=== PATIENT | male | born 1955 | race African-American/Black ===

== ENCOUNTER 2018-12-02 10:49 | Emergency (ER) | payer MEDICAID, OTHER ==
[~2018-12-02] VITALS: Ht 175.3 cm; Wt 103.0 kg
[~2018-12-02 10:49] MED LIST: ASPI-518; GLIP10TA10; METF500T
[2018-12-02] MEDS ORDERED: SODIUM CHLORIDE 0.9% 1,000 ML IV ONE (11:00)
[2018-12-02 11:37] LABS: HEMATOCRIT. 40.5 % (42.0-52.0); HEMOGLOBIN. 13.6 g/dL (14.0-18.0); MEAN CORPUSCULAR HEMOGLOBIN 33.5 pg (28.0-32.0); MEAN CORPUSCULAR VOLUME 99.4 fL (80.0-94.0); MEAN PLATELET VOLUME 8.3 fl (7.4-10.4); PLATELET 312 x1000/uL (130-400); RED BLOOD CELL COUNT 4.07 mill/uL (4.7-6.1); RED CELL DISTRIBUTION WIDTH 14.2 % (11.6-14.6)
[2018-12-02 11:43] LABS: CHLORIDE 107 mEq/L (98-107)
[2018-12-02 11:51] LABS: CLARITY URINE CLEAR (CLEAR); COLOR URINE YELLOW (YELLOW); KETONES URINE NEGATIVE (NEGATIVE); LEUKOCYTE ESTERASE URINE NEGATIVE (NEGATIVE); NITRITE URINE NEGATIVE (NEGATIVE); OCCULT BLOOD URINE NEGATIVE (NEGATIVE); PROTEIN URINE NEGATIVE (NEGATIVE); SPECIFIC GRAVITY URINE 1.011 (1.005-1.030); UROBILINOGEN URINE 0.2 E.U./dL (0.2-1.0)
[2018-12-02 12:09] LABS: *AMPHETAMINES SCREEN URINE NEGATIVE (NEGATIVE); *BARBITURATES SCREEN URINE NEGATIVE (NEGATIVE); *BENZODIAZEPINES SCREEN URINE NEGATIVE (NEGATIVE); *COCAINE SCREEN URINE PRESUMTIVE POSITIVE (NEGATIVE)
[2018-12-02 12:10] LABS: CANNABINOID URINE SCREEN NEGATIVE (NEGATIVE); METHADONE URINE SCREEN NEGATIVE (NEGATIVE); OPIATES URINE SCREEN NEGATIVE (NEGATIVE); PHENCYCLIDINE URINE SCREEN NEGATIVE (NEGATIVE)
[2018-12-02 12:40] LABS: PLATELET ESTIMATE NORMAL
[2018-12-02 13:19] VITALS: BP 121/78
== END 2018-12-02 13:25 | disposition home or self-care (01) ==
LOC: ER 11:02
DX: R42 Dizziness and giddiness (principal); R19.7 Diarrhea, unspecified; F10.129 Alcohol abuse with intoxication, unspecified; F14.10 Cocaine abuse, uncomplicated; E11.9 Type 2 diabetes mellitus without complications; I10 Essential (primary) hypertension; F17.200 Nicotine dependence, unspecified, uncomplicated; Z79.82 Long term (current) use of aspirin; Z79.84 Long term (current) use of oral hypoglycemic drugs; Y90.9 Presence of alcohol in blood, level not specified
CPT/HCPCS: 36415; 71045; 80053; 80305; 80320; 81003; 83735; 83880; 84484; 85025; 93005; 96360; 99284; J7030; G0480

== ENCOUNTER 2018-12-14 23:13 | Emergency (ER) | payer MEDICAID ==
[~2018-12-14] VITALS: Ht 182.9 cm; Wt 102.0 kg
[~2018-12-14 23:13] MED LIST changes: -METF500T; +METF500T PO
[2018-12-14] MEDS ORDERED: ASPIRIN 81MG TABLET PO ONE (23:45)
[2018-12-15 00:19] LABS: HEMATOCRIT. 39.5 % (42.0-52.0); HEMOGLOBIN. 13.3 g/dL (14.0-18.0); MEAN CORPUSCULAR HEMOGLOBIN 33.3 pg (28.0-32.0); MEAN CORPUSCULAR VOLUME 98.7 fL (80.0-94.0); MEAN PLATELET VOLUME 8.7 fl (7.4-10.4); PLATELET 300 x1000/uL (130-400); RED CELL DISTRIBUTION WIDTH 14.2 % (11.6-14.6)
[2018-12-15 00:29] LABS: CHLORIDE 107 mEq/L (98-107)
[2018-12-15 00:33] LABS: ETHANOL BLOOD 246 mg/dL
[2018-12-15 03:18] LABS: PLATELET ESTIMATE NORMAL
[2018-12-15 04:00] VITALS: BP 114/61
[2018-12-16] MEDS ORDERED: LISI10TA5 MT (01:03)
[2018-12-17] MEDS ORDERED: METF500T PO (10:23)
[2018-12-17] MEDS ORDERED: LISI10TA5 MT (10:23)
[2018-12-17] MEDS ORDERED: ASPI-1158 PO (10:23)
[2018-12-17] MEDS ORDERED: ATOR10TA PO (10:23)
[2018-12-17] MEDS ORDERED: DILT90TA2 PO (10:23)
== END 2018-12-15 06:12 | disposition left against medical advice (07) ==
LOC: ER 23:13
DX: R07.9 Chest pain, unspecified (principal); E11.9 Type 2 diabetes mellitus without complications; I10 Essential (primary) hypertension; F17.200 Nicotine dependence, unspecified, uncomplicated; Z71.6 Tobacco abuse counseling; Z79.82 Long term (current) use of aspirin
CPT/HCPCS: 36415; 71045; 80053; 80320; 83880; 84484; 85025; 93005; 99284; 99406; Z7610; G0480

== ENCOUNTER 2018-12-19 17:35 | Emergency (ER) | payer MEDICAID ==
[~2018-12-19] VITALS: Ht 172.7 cm; Wt 82.0 kg
[~2018-12-19 17:35] MED LIST changes: +ASPI-1158 PO; -ASPI-518; +ATOR10TA PO; +DILT90TA2 PO; -GLIP10TA10; +LISI10TA5 MT
[2018-12-19] MEDS ORDERED: MORPHINE SULFATE 4 MG/ML CPJ (NOT FOR IM USE) IV STA (17:52)
[2018-12-19] MEDS ORDERED: ONDANSETRON HCL 4MG/2ML INJ IV STA (17:52)
[2018-12-19] MEDS ORDERED: KETOROLAC 30MG/ML VIAL IV STA (17:52)
[2018-12-19] MEDS ORDERED: SODIUM CHLORIDE 0.9% 1,000 ML IV ONE (17:52)
[2018-12-19 18:28] VITALS: BP 127/70
[2018-12-19 18:34] LABS: HEMATOCRIT. 40.4 % (42.0-52.0); HEMOGLOBIN. 13.7 g/dL (14.0-18.0); MEAN CORPUSCULAR HEMOGLOBIN 33.5 pg (28.0-32.0); MEAN CORPUSCULAR VOLUME 98.9 fL (80.0-94.0); MEAN PLATELET VOLUME 8.7 fl (7.4-10.4); PLATELET 372 x1000/uL (130-400); RED BLOOD CELL COUNT 4.08 mill/uL (4.7-6.1)
[2018-12-19 18:36] LABS: CLARITY URINE CLEAR (CLEAR); COLOR URINE YELLOW (YELLOW); KETONES URINE NEGATIVE (NEGATIVE); LEUKOCYTE ESTERASE URINE NEGATIVE (NEGATIVE); NITRITE URINE NEGATIVE (NEGATIVE); OCCULT BLOOD URINE NEGATIVE (NEGATIVE); PH URINE 5.5 (4.5-8.0); PROTEIN URINE NEGATIVE (NEGATIVE); SPECIFIC GRAVITY URINE 1.003 (1.005-1.030); UROBILINOGEN URINE 0.2 E.U./dL (0.2-1.0)
[2018-12-19 18:37] LABS: CHLORIDE 103 mEq/L (98-107)
[2018-12-19 18:38] LABS: INR 0.9; PARTIAL THROMBOPLASTIN TIME 27.1 sec (23.4-31.0); PROTHROMBIN TIME 9.8 sec (9.6-11.0)
[2018-12-19 18:41] LABS: ETHANOL BLOOD 186 mg/dL
[2018-12-19 18:50] LABS: PLATELET ESTIMATE NORMAL
[2018-12-19 19:02] LABS: *AMPHETAMINES SCREEN URINE NEGATIVE (NEGATIVE); *BARBITURATES SCREEN URINE NEGATIVE (NEGATIVE); *BENZODIAZEPINES SCREEN URINE NEGATIVE (NEGATIVE); *COCAINE SCREEN URINE NEGATIVE (NEGATIVE); METHADONE URINE SCREEN NEGATIVE (NEGATIVE); OPIATES URINE SCREEN NEGATIVE (NEGATIVE)
[2018-12-19 19:03] LABS: CANNABINOID URINE SCREEN NEGATIVE (NEGATIVE); PHENCYCLIDINE URINE SCREEN NEGATIVE (NEGATIVE)
[2018-12-19] MEDS ORDERED: MAGNESIUM/ALUMINUM HYDROXIDE/SIMETHICONE 30ML UDC PO ONE (20:15)
[2018-12-19] MEDS ORDERED: FAMOTIDINE 20MG/2ML VIAL IV ONE (20:15)
== END 2018-12-19 20:20 | disposition left against medical advice (07) ==
LOC: ER 17:35
DX: R07.89 Other chest pain (principal); K29.20 Alcoholic gastritis without bleeding; Y90.6 Blood alcohol level of 120-199 mg/100 ml; E11.9 Type 2 diabetes mellitus without complications; I10 Essential (primary) hypertension; Z79.899 Other long term (current) drug therapy
CPT/HCPCS: 36415; 71045; 80053; 80305; 80320; 81003; 83690; 83880; 84484; 85025; 85610; 85730; 93005; 99284; J1885; J2270; J2405; J7030; G0480

== ENCOUNTER 2018-12-20 14:03 | Emergency (ER) | payer MEDICAID ==
[~2018-12-20] VITALS: Ht 172.7 cm; Wt 90.0 kg
[2018-12-20] MEDS ORDERED: IBUPROFEN 600MG TABLET PO STA (15:16)
[2018-12-20 15:39] LABS: HEMATOCRIT. 39.5 % (42.0-52.0); HEMOGLOBIN. 13.5 g/dL (14.0-18.0); MEAN CORPUSCULAR HEMOGLOBIN 33.6 pg (28.0-32.0); MEAN CORPUSCULAR VOLUME 98.5 fL (80.0-94.0); MEAN PLATELET VOLUME 8.5 fl (7.4-10.4); PLATELET 365 x1000/uL (130-400); RED BLOOD CELL COUNT 4.01 mill/uL (4.7-6.1)
[2018-12-20 15:40] LABS: CHLORIDE 104 mEq/L (98-107)
[2018-12-20 15:44] LABS: ETHANOL BLOOD 189 mg/dL
[2018-12-20 16:19] LABS: PLATELET ESTIMATE NORMAL
[2018-12-20 17:00] VITALS: BP 139/78
== END 2018-12-20 17:00 | disposition home or self-care (01) ==
LOC: ER 14:03
DX: R07.9 Chest pain, unspecified (principal); F10.10 Alcohol abuse, uncomplicated; Y90.6 Blood alcohol level of 120-199 mg/100 ml; I11.9 Hypertensive heart disease without heart failure; E11.65 Type 2 diabetes mellitus with hyperglycemia; Z79.82 Long term (current) use of aspirin
CPT/HCPCS: 36415; 71045; 80320; 84484; 93005; 99284; G0480

== ENCOUNTER 2018-12-21 01:05 | Emergency (ER) | payer MEDICAID ==
[~2018-12-21] VITALS: Ht 182.9 cm; Wt 107.0 kg
[2018-12-21 02:06] VITALS: BP 150/75
== END 2018-12-21 02:07 | disposition home or self-care (01) ==
LOC: ER 01:05
DX: I10 Essential (primary) hypertension (principal); E11.9 Type 2 diabetes mellitus without complications; Z79.82 Long term (current) use of aspirin; Z79.899 Other long term (current) drug therapy
CPT/HCPCS: 99283

== ENCOUNTER 2018-12-24 19:31 | Emergency (ER) | payer MEDICAID ==
[~2018-12-24] VITALS: Ht 175.3 cm; Wt 111.0 kg
[2018-12-24 19:36] VITALS: BP 154/88
== END 2018-12-24 23:52 | disposition left against medical advice (07) ==
LOC: ER 19:31
DX: Z53.21 Procedure and treatment not carried out due to patient leaving prior to being seen by health care provider (principal)
CPT/HCPCS: 93005

== ENCOUNTER 2018-12-27 19:15 | Emergency (ER) | payer MEDICAID ==
[~2018-12-27] VITALS: Ht 188 cm; Wt 100.0 kg
[2018-12-27 19:19] VITALS: BP 133/88
== END 2018-12-27 20:50 | disposition left against medical advice (07) ==
LOC: ER 19:15
DX: Z53.21 Procedure and treatment not carried out due to patient leaving prior to being seen by health care provider (principal); R07.9 Chest pain, unspecified; K21.9 Gastro-esophageal reflux disease without esophagitis; E11.9 Type 2 diabetes mellitus without complications; H40.9 Unspecified glaucoma; M79.674 Pain in right toe(s); D63.8 Anemia in other chronic diseases classified elsewhere; R79.89 Other specified abnormal findings of blood chemistry; F10.10 Alcohol abuse, uncomplicated; E66.9 Obesity, unspecified; Z59.0 Homelessness; Z68.32 Body mass index [BMI] 32.0-32.9, adult; Z89.411 Acquired absence of right great toe

== ENCOUNTER 2019-01-24 19:44 | Emergency (ER) | payer MEDICAID ==
[~2019-01-24] VITALS: Ht 182.9 cm; Wt 112.0 kg
[2019-01-24] MEDS ORDERED: ACETAMINOPHEN WITH CODEINE 300/30MG TABLET PO ONE (20:45)
[2019-01-24 20:59] VITALS: BP 148/102
== END 2019-01-24 21:40 | disposition home or self-care (01) ==
LOC: ER 19:44
DX: M79.606 Pain in leg, unspecified (principal); M79.18 Myalgia, other site; E11.9 Type 2 diabetes mellitus without complications; Z89.411 Acquired absence of right great toe; F17.200 Nicotine dependence, unspecified, uncomplicated
CPT/HCPCS: 99282

== ENCOUNTER 2019-01-25 23:05 | Inpatient (IN) | payer MEDICAID ==
[~2019-01-25] VITALS: Ht 182.9 cm; Wt 113.4 kg
[2019-01-26] MEDS ORDERED: KETOROLAC 15MG/ML VIAL IM ONE (00:45)
[2019-01-26] MEDS ORDERED: NITROGLYCERIN 0.4MG TABLET SL SL PRN (01:00)
[2019-01-26] MEDS ORDERED: ASPIRIN 81MG TABLET PO ONE (01:00)
[2019-01-26 01:08] LABS: HEMOGLOBIN. 12.9 g/dL (14.0-18.0); MEAN CORPUSCULAR HEMOGLOBIN 33.7 pg (28.0-32.0); MEAN CORPUSCULAR VOLUME 99.4 fL (80.0-94.0); MEAN PLATELET VOLUME 8.4 fl (7.4-10.4); PLATELET 344 x1000/uL (130-400); RED BLOOD CELL COUNT 3.83 mill/uL (4.7-6.1)
[2019-01-26 01:24] LABS: CHLORIDE 104 mEq/L (98-107); D-DIMER < 0.19 mg/L FEU (<0.50); INR 0.9; PARTIAL THROMBOPLASTIN TIME 24.6 sec (23.4-31.0); PROTHROMBIN TIME 9.7 sec (9.6-11.0)
[2019-01-26 04:34] LABS: ATYPICAL LYMPHOCYTES 2; PLATELET ESTIMATE NORMAL
[2019-01-26 05:29] VITALS: BP 172/101
[2019-01-26] MEDS ORDERED: IPRATROPIUM/ALBUTEROL 0.5-3(2.5)MG/3ML NEB HHN PRN (05:30)
[2019-01-26] MEDS ORDERED: ACETAMINOPHEN 325MG TABLET PO PRN (05:30)
[2019-01-26] MEDS ORDERED: DEXTROSE 50% WATER 50ML SYRINGE IV PRN (05:30)
[2019-01-26] MEDS ORDERED: MAGNESIUM HYDROXIDE 400MG/5ML 30ML UDC PO PRN (05:30)
[2019-01-26] MEDS ORDERED: DIPHENHYDRAMINE 50MG/ML VIAL IV PRN (05:30)
[2019-01-26] MEDS ORDERED: KETOROLAC 30MG/ML VIAL IV PRN (05:30)
[2019-01-26] MEDS ORDERED: CLONIDINE 0.1MG TABLET PO PRN (05:30)
[2019-01-26] MEDS ORDERED: MAGNESIUM/ALUMINUM HYDROXIDE/SIMETHICONE 30ML UDC PO PRN (05:30)
[2019-01-26] MEDS ORDERED: ONDANSETRON HCL 4MG/2ML INJ IV PRN (05:30)
[2019-01-26] MEDS: BLOOD SUGAR DIAGNOSTIC STRIP TEST SCH ×4 (07:40→20:28)
[2019-01-26 08:00] VITALS: BP 180/105
[2019-01-26] MEDS: METFORMIN HCL 500MG TABLET PO SCH ×2 (08:27→18:08)
[2019-01-26] MEDS: FAMOTIDINE 20MG TABLET PO SCH ×2 (08:45→20:33)
[2019-01-26] MEDS: LISINOPRIL 10MG TABLET PO SCH (08:45)
[2019-01-26] MEDS: ASPIRIN 81MG EC TABLET PO SCH (08:45)
[2019-01-26] MEDS: INSULIN LISPRO 100 UNITS/ML SUBCUT SCH ×4 (08:49→20:28)
[2019-01-26 12:00] VITALS: BP 142/74
[2019-01-26 16:00] VITALS: BP 107/74
[2019-01-26] MEDS: SODIUM CHLORIDE 0.9% INJ 3ML FLUSH IVF SCH ×2 (19:05→20:33)
[2019-01-26 20:00] VITALS: BP 159/96
[2019-01-26] MEDS ORDERED: ATORVASTATIN CALCIUM 20MG TABLET PO SCH (21:00)
[2019-01-27] VITALS: BP 137/69
[2019-01-27 04:00] VITALS: BP 137/75
[2019-01-27] MEDS: BLOOD SUGAR DIAGNOSTIC STRIP TEST SCH ×2 (07:40→12:40)
[2019-01-27 08:00] VITALS: BP 147/86
[2019-01-27] MEDS: INSULIN LISPRO 100 UNITS/ML SUBCUT SCH ×2 (08:10→13:31)
[2019-01-27] MEDS: FAMOTIDINE 20MG TABLET PO SCH (08:55)
[2019-01-27] MEDS: LISINOPRIL 10MG TABLET PO SCH (08:55)
[2019-01-27] MEDS: METFORMIN HCL 500MG TABLET PO SCH (08:55)
[2019-01-27] MEDS: ASPIRIN 81MG EC TABLET PO SCH (08:55)
[2019-01-27 12:00] VITALS: BP 131/67
[2019-01-27] MEDS: SODIUM CHLORIDE 0.9% INJ 3ML FLUSH IVF SCH (14:00)
== END 2019-01-27 16:05 | disposition home or self-care (01) | DRG 203 ==
LOC: ER 23:05 → 7WST 01-26 02:00 → ENRESERV 01-26 04:02
PROVIDERS: ADMIT Internal Medicine; ATTEND Internal Medicine
DX: M94.0 Chondrocostal junction syndrome [Tietze] (principal); E11.65 Type 2 diabetes mellitus with hyperglycemia; I11.9 Hypertensive heart disease without heart failure; E78.00 Pure hypercholesterolemia, unspecified; E78.5 Hyperlipidemia, unspecified; F17.210 Nicotine dependence, cigarettes, uncomplicated; J44.9 Chronic obstructive pulmonary disease, unspecified; E66.9 Obesity, unspecified; Z68.33 Body mass index [BMI] 33.0-33.9, adult; Z82.49 Family history of ischemic heart disease and other diseases of the circulatory system; Z83.3 Family history of diabetes mellitus; Z59.0 Homelessness; Z79.899 Other long term (current) drug therapy; Z79.82 Long term (current) use of aspirin; Z89.411 Acquired absence of right great toe
CPT/HCPCS: 36415; 71045; 73590; 80053; 82962; 83880; 84484; 85025; 85379; 93005; 93970; 99285; J1815; J1885

== ENCOUNTER 2019-02-16 20:29 | Emergency (ER) | payer MEDICAID ==
[~2019-02-16] VITALS: Ht 182.9 cm; Wt 111.0 kg
[2019-02-17] MEDS ORDERED: METHYLPREDNISOLONE SOD SUCC 125 MG/2 ML VIAL IV STA (01:22)
[2019-02-17] MEDS ORDERED: IPRATROPIUM/ALBUTEROL 0.5-3(2.5)MG/3ML NEB HHN ONE (01:30)
[2019-02-17] MEDS ORDERED: LEVOFLOXACIN 750MG PREMIX 150 ML IV ONE (01:30)
[2019-02-17 01:34] LABS: BASOPHILS % 1.1 % (0.0-2.0); EOSINOPHILS % 5.3 % (0.0-5.0); HEMATOCRIT. 37.1 % (42.0-52.0); HEMOGLOBIN. 12.5 g/dL (14.0-18.0); LYMPHOCYTES % 26.6 % (20.0-50.0); MEAN CORPUSCULAR HEMOGLOBIN 33.7 pg (28.0-32.0); MEAN CORPUSCULAR VOLUME 99.8 fL (80.0-94.0); MEAN PLATELET VOLUME 8.3 fl (7.4-10.4); MONOCYTES % 10.3 % (2.0-8.0); NEUTROPHILS % 56.7 % (40.0-76.0); PLATELET 329 x1000/uL (130-400); RED BLOOD CELL COUNT 3.72 mill/uL (4.7-6.1); RED CELL DISTRIBUTION WIDTH 13.4 % (11.6-14.6)
[2019-02-17 01:38] LABS: CHLORIDE 103 mEq/L (98-107)
[2019-02-17 01:42] LABS: ETHANOL BLOOD < 10 mg/dL
[2019-02-17 01:46] LABS: D-DIMER 0.39 mg/L FEU (<0.50); INR 0.9; PARTIAL THROMBOPLASTIN TIME 26.5 sec (23.4-31.0); PROTHROMBIN TIME 9.4 sec (9.6-11.0)
[2019-02-17 02:56] LABS: *AMPHETAMINES SCREEN URINE NEGATIVE (NEGATIVE); *BARBITURATES SCREEN URINE NEGATIVE (NEGATIVE); *BENZODIAZEPINES SCREEN URINE NEGATIVE (NEGATIVE)
[2019-02-17 02:57] LABS: *COCAINE SCREEN URINE NEGATIVE (NEGATIVE); CANNABINOID URINE SCREEN NEGATIVE (NEGATIVE); OPIATES URINE SCREEN NEGATIVE (NEGATIVE); PHENCYCLIDINE URINE SCREEN NEGATIVE (NEGATIVE)
[2019-02-17 03:00] LABS: METHADONE URINE SCREEN NEGATIVE (NEGATIVE)
[2019-02-17 05:00] VITALS: BP 160/70
== END 2019-02-17 06:29 | disposition home or self-care (01) ==
LOC: ER 20:29 → CANBEDREQ 02-17 07:44
DX: J40 Bronchitis, not specified as acute or chronic (principal); I10 Essential (primary) hypertension; E78.00 Pure hypercholesterolemia, unspecified; E11.9 Type 2 diabetes mellitus without complications; Z98.890 Other specified postprocedural states; F17.290 Nicotine dependence, other tobacco product, uncomplicated
CPT/HCPCS: 36415; 71045; 80053; 80305; 80320; 83690; 83880; 84484; 85025; 85379; 85610; 85730; 87040; 87086; 93970; 94640; 96365; 96366; 96375; 99284; J1956; J2930; J7620; Z7610; G0480

== ENCOUNTER 2019-02-22 16:16 | Emergency (ER) | payer MEDICAID ==
[~2019-02-22] VITALS: Ht 182.9 cm; Wt 111.0 kg
[2019-02-22] MEDS ORDERED: ACETAMINOPHEN 325MG TABLET PO ONE (20:15)
[2019-02-23 05:31] VITALS: BP 120/70
== END 2019-02-23 05:33 | disposition home or self-care (01) ==
LOC: ER 16:16
DX: M79.604 Pain in right leg (principal); Z59.0 Homelessness; E11.9 Type 2 diabetes mellitus without complications; E78.00 Pure hypercholesterolemia, unspecified; I10 Essential (primary) hypertension; Z89.9 Acquired absence of limb, unspecified; Z79.82 Long term (current) use of aspirin
CPT/HCPCS: 93971; 99284

== ENCOUNTER 2019-03-03 16:44 | Emergency (ER) | payer MEDICAID ==
[~2019-03-03] VITALS: Ht 185.4 cm; Wt 110.0 kg
[2019-03-03] MEDS ORDERED: NAPROXEN 250MG TABLET PO ONE (21:45)
[2019-03-03 22:02] LABS: BASOPHILS % 1.7 % (0.0-2.0); HEMATOCRIT. 37.5 % (42.0-52.0); HEMOGLOBIN. 12.7 g/dL (14.0-18.0); LYMPHOCYTES % 24.9 % (20.0-50.0); MEAN CORPUSCULAR HEMOGLOBIN 33.8 pg (28.0-32.0); MEAN PLATELET VOLUME 8.4 fl (7.4-10.4); MONOCYTES % 9.1 % (2.0-8.0); NEUTROPHILS % 61.3 % (40.0-76.0); PLATELET 288 x1000/uL (130-400); RED BLOOD CELL COUNT 3.75 mill/uL (4.7-6.1); RED CELL DISTRIBUTION WIDTH 13.3 % (11.6-14.6)
[2019-03-03 22:10] LABS: CHLORIDE 103 mEq/L (98-107)
[2019-03-03 22:56] LABS: CLARITY URINE CLEAR (CLEAR); COLOR URINE YELLOW (YELLOW); KETONES URINE NEGATIVE (NEGATIVE); LEUKOCYTE ESTERASE URINE NEGATIVE (NEGATIVE); NITRITE URINE NEGATIVE (NEGATIVE); OCCULT BLOOD URINE NEGATIVE (NEGATIVE); PROTEIN URINE NEGATIVE (NEGATIVE); SPECIFIC GRAVITY URINE 1.021 (1.005-1.030); UROBILINOGEN URINE 0.2 E.U./dL (0.2-1.0)
[2019-03-04 06:00] VITALS: BP 132/71
== END 2019-03-04 07:38 | disposition home or self-care (01) ==
LOC: ER 16:44
DX: R07.81 Pleurodynia (principal); E11.9 Type 2 diabetes mellitus without complications; E78.00 Pure hypercholesterolemia, unspecified; I10 Essential (primary) hypertension; F17.200 Nicotine dependence, unspecified, uncomplicated; Z89.9 Acquired absence of limb, unspecified; Z79.82 Long term (current) use of aspirin
CPT/HCPCS: 36415; 71045; 80053; 81003; 85025; 99284

== ENCOUNTER 2019-03-05 20:22 | Emergency (ER) | payer MEDICAID ==
[~2019-03-05] VITALS: Ht 175.3 cm; Wt 84.0 kg
[2019-03-06 00:40] VITALS: BP 129/78
== END 2019-03-06 06:00 | disposition left against medical advice (07) ==
LOC: ER 20:22
DX: G89.29 Other chronic pain (principal); Z59.0 Homelessness; E78.00 Pure hypercholesterolemia, unspecified; E11.9 Type 2 diabetes mellitus without complications; I10 Essential (primary) hypertension; F17.200 Nicotine dependence, unspecified, uncomplicated; Z89.9 Acquired absence of limb, unspecified; Z79.82 Long term (current) use of aspirin
CPT/HCPCS: 73610; 99283

== ENCOUNTER 2019-03-06 16:04 | Emergency (ER) | payer MEDICAID ==
[~2019-03-06] VITALS: Ht 182.9 cm; Wt 103.0 kg
[2019-03-07 05:37] VITALS: BP 106/72
== END 2019-03-07 05:13 | disposition home or self-care (01) ==
LOC: ER 16:04
DX: M79.661 Pain in right lower leg (principal); E11.9 Type 2 diabetes mellitus without complications; E78.00 Pure hypercholesterolemia, unspecified; I10 Essential (primary) hypertension; J40 Bronchitis, not specified as acute or chronic; Z79.82 Long term (current) use of aspirin; Z89.431 Acquired absence of right foot
CPT/HCPCS: 99281

== ENCOUNTER 2019-03-07 18:10 | Emergency (ER) | payer MEDICAID ==
[~2019-03-07] VITALS: Ht 182.9 cm; Wt 109.0 kg
[2019-03-07 18:32] VITALS: BP 122/59
[2019-03-07] MEDS ORDERED: IBUPROFEN 800MG TABLET PO ONE (20:00)
== END 2019-03-07 21:37 | disposition home or self-care (01) ==
LOC: ER 18:10
DX: M54.9 Dorsalgia, unspecified (principal); E78.00 Pure hypercholesterolemia, unspecified; E11.9 Type 2 diabetes mellitus without complications; I10 Essential (primary) hypertension; W01.0XXA Fall on same level from slipping, tripping and stumbling without subsequent striking against object, initial encounter; Y93.9 Activity, unspecified; Y92.9 Unspecified place or not applicable; Z79.82 Long term (current) use of aspirin; Z90.49 Acquired absence of other specified parts of digestive tract; Z89.431 Acquired absence of right foot
CPT/HCPCS: 99282

== ENCOUNTER 2019-03-14 16:15 | Emergency (ER) | payer MEDICAID ==
[~2019-03-14] VITALS: Ht 167.6 cm; Wt 108.0 kg
[2019-03-14] MEDS ORDERED: HYDROCODONE/ACETAMINOPHEN 5/325MG TABLET PO ONE (18:00)
[2019-03-14 18:55] VITALS: BP 128/81
== END 2019-03-14 18:56 | disposition home or self-care (01) ==
LOC: ER 17:30
DX: M54.9 Dorsalgia, unspecified (principal); G89.29 Other chronic pain; E11.9 Type 2 diabetes mellitus without complications; E78.00 Pure hypercholesterolemia, unspecified; I10 Essential (primary) hypertension; Z79.82 Long term (current) use of aspirin; Z89.411 Acquired absence of right great toe
CPT/HCPCS: 99282

== ENCOUNTER 2019-03-17 15:41 | Emergency (ER) | payer MEDICAID ==
[~2019-03-17] VITALS: Ht 175.3 cm; Wt 91.0 kg
[2019-03-17] MEDS ORDERED: ACETAMINOPHEN 325MG TABLET PO ONE (17:15)
[2019-03-18 06:50] VITALS: BP 140/79
== END 2019-03-18 06:50 | disposition home or self-care (01) ==
LOC: ER 15:41
DX: M79.661 Pain in right lower leg (principal); G89.29 Other chronic pain; J42 Unspecified chronic bronchitis; Z76.0 Encounter for issue of repeat prescription; I10 Essential (primary) hypertension; E11.9 Type 2 diabetes mellitus without complications; E78.00 Pure hypercholesterolemia, unspecified
CPT/HCPCS: 99283

== ENCOUNTER 2019-03-19 14:09 | Emergency (ER) | payer MEDICAID ==
[~2019-03-19] VITALS: Ht 182.9 cm; Wt 91.0 kg
[2019-03-19 17:02] LABS: BASOPHILS % 0.5 % (0.0-2.0); CHLORIDE 102 mEq/L (98-107); EOSINOPHILS % 5.1 % (0.0-5.0); HEMOGLOBIN. 13.3 g/dL (14.0-18.0); LYMPHOCYTES % 32.9 % (20.0-50.0); MEAN CORPUSCULAR HEMOGLOBIN 33.4 pg (28.0-32.0); MEAN CORPUSCULAR VOLUME 100.4 fL (80.0-94.0); MEAN PLATELET VOLUME 8.4 fl (7.4-10.4); MONOCYTES % 9.3 % (2.0-8.0); NEUTROPHILS % 52.2 % (40.0-76.0); PLATELET 319 x1000/uL (130-400); RED BLOOD CELL COUNT 3.98 mill/uL (4.7-6.1); RED CELL DISTRIBUTION WIDTH 12.8 % (11.6-14.6)
[2019-03-19 17:07] LABS: ETHANOL BLOOD 151 mg/dL
[2019-03-19 17:26] LABS: CLARITY URINE CLEAR (CLEAR); COLOR URINE YELLOW (YELLOW); KETONES URINE TRACE (NEGATIVE); LEUKOCYTE ESTERASE URINE NEGATIVE (NEGATIVE); NITRITE URINE NEGATIVE (NEGATIVE); OCCULT BLOOD URINE NEGATIVE (NEGATIVE); PROTEIN URINE NEGATIVE (NEGATIVE); UROBILINOGEN URINE 0.2 E.U./dL (0.2-1.0)
[2019-03-19 17:39] LABS: *BARBITURATES SCREEN URINE NEGATIVE (NEGATIVE)
[2019-03-19 17:40] LABS: *AMPHETAMINES SCREEN URINE NEGATIVE (NEGATIVE); *BENZODIAZEPINES SCREEN URINE NEGATIVE (NEGATIVE); *COCAINE SCREEN URINE NEGATIVE (NEGATIVE); CANNABINOID URINE SCREEN NEGATIVE (NEGATIVE); METHADONE URINE SCREEN NEGATIVE (NEGATIVE); OPIATES URINE SCREEN NEGATIVE (NEGATIVE); PHENCYCLIDINE URINE SCREEN NEGATIVE (NEGATIVE)
[2019-03-19] MEDS ORDERED: IBUPROFEN 600MG TABLET PO ONE (21:00)
[2019-03-20 06:00] VITALS: BP 155/116
== END 2019-03-20 09:45 | disposition home or self-care (01) ==
LOC: ER 14:09
DX: R07.9 Chest pain, unspecified (principal); F10.129 Alcohol abuse with intoxication, unspecified; E11.9 Type 2 diabetes mellitus without complications; Y90.2 Blood alcohol level of 40-59 mg/100 ml; Z59.0 Homelessness; Z79.82 Long term (current) use of aspirin
CPT/HCPCS: 36415; 71045; 80053; 80305; 80320; 81003; 84484; 85025; 93005; 99285; G0480

== ENCOUNTER 2019-04-10 21:39 | Emergency (ER) | payer MEDICAID ==
[~2019-04-10] VITALS: Ht 172.7 cm; Wt 100.0 kg
[2019-04-11] MEDS ORDERED: ACETAMINOPHEN 325MG TABLET PO ONE (03:45)
[2019-04-11] MEDS ORDERED: KETOROLAC 15MG/ML VIAL IM ONE (05:00)
[2019-04-11 07:30] VITALS: BP 150/120
== END 2019-04-11 09:32 | disposition home or self-care (01) ==
LOC: ER 21:39
DX: G89.29 Other chronic pain (principal); Z59.0 Homelessness; E11.9 Type 2 diabetes mellitus without complications; I10 Essential (primary) hypertension; Z79.82 Long term (current) use of aspirin
CPT/HCPCS: 99283

== ENCOUNTER 2020-05-03 11:44 | Emergency (ER) | payer MEDICAID ==
[~2020-05-03] VITALS: Ht 182.9 cm; Wt 109.0 kg
[~2020-05-03 11:44] MED LIST changes: -ASPI-1158 PO; +ASPI-1406 PO; +LISI10TA26 MT; -LISI10TA5 MT
[2020-05-03] MEDS ORDERED: IBUPROFEN 600MG TABLET PO STA (12:03)
[2020-05-03 12:09] VITALS: BP 102/60
[2020-05-03] MEDS ORDERED: SODIUM CHLORIDE 0.9% 1,000 ML IV ONE (12:15)
[2020-05-03] MEDS ORDERED: METF-414 MT (17:36)
[2020-05-03] MEDS ORDERED: ALBU6.7H9 INH (17:36)
[2020-05-04 11:53] LABS: *AMPHETAMINES SCREEN URINE NEGATIVE (NEGATIVE); CANNABINOID URINE SCREEN NEGATIVE (NEGATIVE)
[2020-05-04 11:55] LABS: *BARBITURATES SCREEN URINE NEGATIVE (NEGATIVE); *BENZODIAZEPINES SCREEN URINE NEGATIVE (NEGATIVE)
[2020-05-04 11:57] LABS: *COCAINE SCREEN URINE NEGATIVE (NEGATIVE); METHADONE URINE SCREEN NEGATIVE (NEGATIVE); PHENCYCLIDINE URINE SCREEN NEGATIVE (NEGATIVE)
[2020-05-04 11:59] LABS: OPIATES URINE SCREEN NEGATIVE (NEGATIVE)
== END 2020-05-03 12:48 | disposition left against medical advice (07) ==
LOC: ER 12:26
DX: R07.89 Other chest pain (principal); F10.10 Alcohol abuse, uncomplicated; R00.0 Tachycardia, unspecified; E11.9 Type 2 diabetes mellitus without complications; I10 Essential (primary) hypertension; R53.1 Weakness; R42 Dizziness and giddiness; Z79.899 Other long term (current) drug therapy; Y90.9 Presence of alcohol in blood, level not specified
CPT/HCPCS: 71045; 80305; 93005; 99285; J7030

== ENCOUNTER 2020-05-03 14:29 | Emergency (ER) | payer MEDICAID ==
[~2020-05-03] VITALS: Ht 172.7 cm; Wt 90.0 kg
[2020-05-03] MEDS ORDERED: SODIUM CHLORIDE 0.9% 1,000 ML IV ONE (15:00)
[2020-05-03] MEDS ORDERED: INSULIN REGULAR (HUMULIN R) 300UNITS/3ML VIAL IV ONE (15:00)
[2020-05-03 15:16] LABS: BASOPHILS % 0.9 % (0.0-2.0); EOSINOPHILS % 6.4 % (0.0-5.0); HEMOGLOBIN. 13.2 g/dL (14.0-18.0); MEAN CORPUSCULAR HEMOGLOBIN 32.2 pg (28.0-32.0); MEAN PLATELET VOLUME 8.8 fl (7.4-10.4); MONOCYTES % 9.3 % (2.0-8.0); NEUTROPHILS % 61.4 % (40.0-76.0); PLATELET 375 x1000/uL (130-400); RED BLOOD CELL COUNT 4.08 mill/uL (4.7-6.1); RED CELL DISTRIBUTION WIDTH 14.1 % (11.6-14.6)
[2020-05-03 15:21] LABS: BG BASE EXCESS -0.3 mmol/L (-2.0-2.0); BG CARBOXYHEMOGLOBIN 4.4 % (0.5-1.5); BG DEOXYHEMOGLOBIN 3.1 % (0.0-5.0); BG FRACTION INSPIRED OXYGEN 21; BG METHEMOGLOBIN 0.3 % (0.0-1.5); BG OXYGEN SATURATION 96.7 % (92.0-98.5); BG OXYHEMOGLOBIN 92.2 % (94.0-97.0); BG PCO2 43.3 mmHg (35.0-45.0); BG PH 7.379 (7.350-7.450); BG SAMPLE SITE RIGHT BRACHIAL; BG TOTAL HEMOGLOBIN 13.6 g/dL (12.0-18.0); BG VENT MODE ROOM AIR
[2020-05-03 15:22] LABS: CHLORIDE 100 mEq/L (98-107)
[2020-05-03 15:26] LABS: CLARITY URINE CLEAR (CLEAR); COLOR URINE YELLOW (YELLOW); KETONES URINE TRACE (NEGATIVE); LEUKOCYTE ESTERASE URINE NEGATIVE (NEGATIVE); NITRITE URINE NEGATIVE (NEGATIVE); OCCULT BLOOD URINE NEGATIVE (NEGATIVE); PROTEIN URINE NEGATIVE (NEGATIVE); SPECIFIC GRAVITY URINE 1.012 (1.005-1.030); UROBILINOGEN URINE 0.2 E.U./dL (0.2-1.0)
[2020-05-03 15:30] LABS: BETA HYDROXYBUTYRATE 0.1 mMol/L (0.0-0.3)
[2020-05-03 16:45] VITALS: BP 100/56
[2020-05-03] MEDS ORDERED: METF-414 MT (17:36)
[2020-05-03] MEDS ORDERED: ALBU6.7H9 INH (17:36)
== END 2020-05-03 18:22 | disposition home or self-care (01) ==
LOC: ER 14:29
DX: E11.65 Type 2 diabetes mellitus with hyperglycemia (principal); R06.02 Shortness of breath; I10 Essential (primary) hypertension; F17.210 Nicotine dependence, cigarettes, uncomplicated; Z91.19 Patient's noncompliance with other medical treatment and regimen; Z79.899 Other long term (current) drug therapy; Z53.29 Procedure and treatment not carried out because of patient's decision for other reasons; Z59.0 Homelessness
CPT/HCPCS: 36415; 36600; 80048; 81003; 82010; 82375; 82805; 85025; 96361; 96374; 99283; J1815; Z7610

== ENCOUNTER 2020-05-06 11:36 | Emergency (ER) | payer MEDICAID ==
[~2020-05-06] VITALS: Ht 182.9 cm; Wt 99.0 kg
[~2020-05-06 11:36] MED LIST changes: +ALBU6.7H9 INH; +METF-414 MT
[2020-05-06 11:59] VITALS: BP 114/86
[2020-05-06] MEDS ORDERED: IPRATROPIUM BROMIDE (0.02%) 0.5MG/2.5ML NEB HHN STA (12:27)
[2020-05-06] MEDS ORDERED: AZITHROMYCIN 500 MG TABLET PO STA (12:27)
[2020-05-06] MEDS ORDERED: METHYLPREDNISOLONE SOD SUCC 125 MG/2 ML VIAL IV STA (12:27)
[2020-05-06] MEDS ORDERED: ALBUTEROL (0.083%) 2.5MG/3ML NEB HHN STA (12:27)
[2020-05-06] MEDS ORDERED: MAGNESIUM 2 G PREMIX 50 ML IV STA (12:27)
[2020-05-06 12:31] LABS: BASOPHILS % 1.8 % (0.0-2.0); EOSINOPHILS % 6.6 % (0.0-5.0); HEMATOCRIT. 40.7 % (42.0-52.0); HEMOGLOBIN. 13.8 g/dL (14.0-18.0); LYMPHOCYTES % 27.4 % (20.0-50.0); MEAN CORPUSCULAR HEMOGLOBIN 33.3 pg (28.0-32.0); MEAN CORPUSCULAR VOLUME 97.9 fL (80.0-94.0); MEAN PLATELET VOLUME 8.5 fl (7.4-10.4); MONOCYTES % 12.4 % (2.0-8.0); NEUTROPHILS % 51.8 % (40.0-76.0); PLATELET 364 x1000/uL (130-400); RED BLOOD CELL COUNT 4.16 mill/uL (4.7-6.1); RED CELL DISTRIBUTION WIDTH 13.8 % (11.6-14.6)
[2020-05-06 12:35] LABS: CHLORIDE 101 mEq/L (98-107)
== END 2020-05-06 12:52 | disposition left against medical advice (07) ==
LOC: ER 11:48
DX: J44.1 Chronic obstructive pulmonary disease with (acute) exacerbation (principal); R06.02 Shortness of breath; F17.200 Nicotine dependence, unspecified, uncomplicated; E11.9 Type 2 diabetes mellitus without complications; I10 Essential (primary) hypertension; Z79.82 Long term (current) use of aspirin
CPT/HCPCS: 36415; 80053; 83880; 84484; 85025; 93005; 99284; Z7610

== ENCOUNTER 2020-05-06 15:43 | Emergency (ER) | payer MEDICAID ==
[~2020-05-06] VITALS: Ht 185.4 cm; Wt 102.0 kg
[2020-05-06 15:48] VITALS: BP 148/83
== END 2020-05-06 16:18 | disposition left against medical advice (07) ==
LOC: ER 15:52
DX: Z53.21 Procedure and treatment not carried out due to patient leaving prior to being seen by health care provider (principal); E11.9 Type 2 diabetes mellitus without complications; I10 Essential (primary) hypertension; F17.200 Nicotine dependence, unspecified, uncomplicated

== ENCOUNTER 2020-05-07 16:41 | Inpatient (IN) | payer MEDICAID ==
[~2020-05-07] VITALS: Ht 182.9 cm; Wt 109.3 kg
[2020-05-07] MEDS ORDERED: ASPIRIN 325MG EC TABLET PO ONE (17:15)
[2020-05-07 17:34] LABS: CHLORIDE 104 mEq/L (98-107); EOSINOPHILS % 6.5 % (0.0-5.0); HEMOGLOBIN. 13.9 g/dL (14.0-18.0); LYMPHOCYTES % 32.3 % (20.0-50.0); MEAN CORPUSCULAR HEMOGLOBIN 32.3 pg (28.0-32.0); MEAN CORPUSCULAR VOLUME 97.5 fL (80.0-94.0); MEAN PLATELET VOLUME 8.4 fl (7.4-10.4); MONOCYTES % 9.4 % (2.0-8.0); NEUTROPHILS % 50.8 % (40.0-76.0); PLATELET 363 x1000/uL (130-400); RED CELL DISTRIBUTION WIDTH 13.7 % (11.6-14.6)
[2020-05-07] MEDS ORDERED: IOHEXOL-350 100 ML BOTTLE ONE (20:56)
[2020-05-07 23:42] VITALS: BP 144/81
[2020-05-08] VITALS: BP 143/82
[2020-05-08] MEDS ORDERED: ZOLPIDEM TARTRATE 5MG TABLET PO PRN (00:45)
[2020-05-08] MEDS ORDERED: DEXTROSE 50% WATER 50ML SYRINGE IV PRN (00:45)
[2020-05-08 04:00] VITALS: BP 126/75
[2020-05-08] MEDS: BLOOD SUGAR DIAGNOSTIC STRIP TEST SCH ×4 (06:03→21:00)
[2020-05-08 08:00] VITALS: BP 197/93
[2020-05-08] MEDS: HYDROCODONE/ACETAMINOPHEN 5/325MG TABLET PO PRN ×2 (08:01→17:35)
[2020-05-08] MEDS: ASPIRIN 81MG TABLET PO SCH (08:01)
[2020-05-08] MEDS: METFORMIN HCL 500MG TABLET PO SCH ×2 (08:02→17:35)
[2020-05-08] MEDS: ENOXAPARIN 30MG/0.3ML SYR SUBCUT SCH ×3 (08:03→23:02)
[2020-05-08] MEDS: INSULIN LISPRO 100 UNITS/ML SUBCUT SCH ×4 (08:03→23:07)
[2020-05-08] MEDS ORDERED: FUROSEMIDE 40MG TABLET PO SCH (09:00)
[2020-05-08] MEDS: FUROSEMIDE 40MG/4ML VIAL IVP SCH ×2 (09:00→17:00)
[2020-05-08] MEDS ORDERED: AMLODIPINE 10MG TABLET PO SCH (09:00)
[2020-05-08] MEDS ORDERED: LISINOPRIL 10MG TABLET PO SCH (09:00)
[2020-05-08] MEDS: INSULIN GLARGINE UD 100 UNITS/ML SYR SUBCUT SCH ×2 (10:43→23:09)
[2020-05-08 13:07] LABS: CANNABINOID URINE SCREEN NEGATIVE (NEGATIVE); METHADONE URINE SCREEN NEGATIVE (NEGATIVE); OPIATES URINE SCREEN PRESUMTIVE POSITIVE (NEGATIVE); PHENCYCLIDINE URINE SCREEN NEGATIVE (NEGATIVE)
[2020-05-08 13:08] LABS: *AMPHETAMINES SCREEN URINE NEGATIVE (NEGATIVE); *BARBITURATES SCREEN URINE NEGATIVE (NEGATIVE); *BENZODIAZEPINES SCREEN URINE NEGATIVE (NEGATIVE); *COCAINE SCREEN URINE NEGATIVE (NEGATIVE)
[2020-05-08] MEDS ORDERED: CLONIDINE 0.1MG TABLET PO PRN (14:00)
[2020-05-08 16:00] VITALS: BP 109/70
[2020-05-08 20:00] VITALS: BP 110/59
[2020-05-08] MEDS: LISINOPRIL 10MG TABLET PO SCH (23:00)
[2020-05-08] MEDS: ATORVASTATIN CALCIUM 20MG TABLET PO SCH (23:00)
[2020-05-09] VITALS: BP 144/78
[2020-05-09 04:00] VITALS: BP 149/83
[2020-05-09] MEDS: HYDROCODONE/ACETAMINOPHEN 5/325MG TABLET PO PRN ×3 (05:16→23:23)
[2020-05-09] MEDS: BLOOD SUGAR DIAGNOSTIC STRIP TEST SCH ×4 (06:48→20:44)
[2020-05-09] MEDS: INSULIN LISPRO 100 UNITS/ML SUBCUT SCH ×4 (07:50→21:00)
[2020-05-09 08:00] VITALS: BP 129/74
[2020-05-09] MEDS: ENOXAPARIN 30MG/0.3ML SYR SUBCUT SCH ×2 (09:26→21:06)
[2020-05-09] MEDS: FUROSEMIDE 40MG/4ML VIAL IVP SCH ×2 (09:27→18:01)
[2020-05-09] MEDS: ASPIRIN 81MG TABLET PO SCH (09:32)
[2020-05-09] MEDS: METFORMIN HCL 500MG TABLET PO SCH ×2 (09:36→18:01)
[2020-05-09] MEDS: LISINOPRIL 10MG TABLET PO SCH ×2 (09:37→21:00)
[2020-05-09] MEDS: THIAMINE HCL 100MG TABLET PO SCH (09:37)
[2020-05-09] MEDS: AMLODIPINE 5MG TABLET PO SCH ×2 (09:37→21:00)
[2020-05-09] MEDS: INSULIN GLARGINE UD 100 UNITS/ML SYR SUBCUT SCH ×2 (10:00→21:07)
[2020-05-09 12:00] VITALS: BP 100/52
[2020-05-09 16:00] VITALS: BP 126/74
[2020-05-09 20:00] VITALS: BP 107/51
[2020-05-09] MEDS: ATORVASTATIN CALCIUM 20MG TABLET PO SCH (21:05)
[2020-05-10] VITALS: BP 127/80
[2020-05-10 04:00] VITALS: BP 115/48
[2020-05-10] MEDS: BLOOD SUGAR DIAGNOSTIC STRIP TEST SCH ×4 (06:39→21:00)
[2020-05-10 08:00] VITALS: BP 123/74
[2020-05-10] MEDS: FUROSEMIDE 40MG/4ML VIAL IVP SCH ×2 (08:40→17:17)
[2020-05-10] MEDS: ENOXAPARIN 30MG/0.3ML SYR SUBCUT SCH ×2 (08:40→21:14)
[2020-05-10] MEDS: ASPIRIN 81MG TABLET PO SCH (08:41)
[2020-05-10] MEDS: THIAMINE HCL 100MG TABLET PO SCH (08:41)
[2020-05-10] MEDS: METFORMIN HCL 500MG TABLET PO SCH ×2 (08:41→17:17)
[2020-05-10] MEDS: AMLODIPINE 5MG TABLET PO SCH ×2 (08:42→21:13)
[2020-05-10] MEDS: LISINOPRIL 10MG TABLET PO SCH ×2 (08:42→21:13)
[2020-05-10] MEDS: INSULIN LISPRO 100 UNITS/ML SUBCUT SCH ×4 (08:51→21:00)
[2020-05-10] MEDS: INSULIN GLARGINE UD 100 UNITS/ML SYR SUBCUT SCH ×2 (11:01→22:08)
[2020-05-10 12:00] VITALS: BP 104/75
[2020-05-10] MEDS ORDERED: FURO-151 MT (14:02)
[2020-05-10] MEDS ORDERED: AMLO5TAB88 PO (14:02)
[2020-05-10] MEDS ORDERED: METF500T PO (14:02)
[2020-05-10] MEDS ORDERED: INSU100I28 SQ (14:02)
[2020-05-10] MEDS ORDERED: ATOR20TA PO (14:02)
[2020-05-10] MEDS ORDERED: LISI10TA26 PO (14:02)
[2020-05-10 16:00] VITALS: BP 117/52
[2020-05-10 20:00] VITALS: BP 124/69
[2020-05-10] MEDS: HYDROCODONE/ACETAMINOPHEN 5/325MG TABLET PO PRN (20:47)
[2020-05-10] MEDS: ATORVASTATIN CALCIUM 20MG TABLET PO SCH (21:13)
[2020-05-11] VITALS: BP 102/63
[2020-05-11 04:07] VITALS: BP 127/83
[2020-05-11] MEDS: INSULIN LISPRO 100 UNITS/ML SUBCUT SCH ×4 (06:58→21:42)
[2020-05-11] MEDS: BLOOD SUGAR DIAGNOSTIC STRIP TEST SCH ×4 (06:58→21:36)
[2020-05-11 08:00] VITALS: BP 128/81
[2020-05-11] MEDS: LISINOPRIL 10MG TABLET PO SCH ×2 (09:48→21:26)
[2020-05-11] MEDS: THIAMINE HCL 100MG TABLET PO SCH (09:49)
[2020-05-11] MEDS: AMLODIPINE 5MG TABLET PO SCH ×2 (09:49→21:26)
[2020-05-11] MEDS: METFORMIN HCL 500MG TABLET PO SCH ×2 (09:49→19:03)
[2020-05-11] MEDS: FUROSEMIDE 40MG/4ML VIAL IVP SCH ×2 (09:49→19:03)
[2020-05-11] MEDS: ASPIRIN 81MG TABLET PO SCH (09:49)
[2020-05-11] MEDS: ENOXAPARIN 30MG/0.3ML SYR SUBCUT SCH ×2 (09:50→21:00)
[2020-05-11] MEDS: INSULIN GLARGINE UD 100 UNITS/ML SYR SUBCUT SCH ×3 (09:57→21:44)
[2020-05-11 12:00] VITALS: BP 130/76
[2020-05-11 16:00] VITALS: BP 127/81
[2020-05-11] MEDS: HYDROCODONE/ACETAMINOPHEN 5/325MG TABLET PO PRN (19:07)
[2020-05-11 20:00] VITALS: BP 120/68
[2020-05-11] MEDS: ATORVASTATIN CALCIUM 20MG TABLET PO SCH (21:26)
[2020-05-12] VITALS: BP 131/79
[2020-05-12] MEDS ORDERED: CLONIDINE 0.1MG TABLET PO PRN
[2020-05-12 04:00] VITALS: BP 136/69
[2020-05-12] MEDS: BLOOD SUGAR DIAGNOSTIC STRIP TEST SCH ×4 (07:00→21:35)
[2020-05-12] MEDS: INSULIN LISPRO 100 UNITS/ML SUBCUT SCH ×4 (07:50→21:00)
[2020-05-12 08:00] VITALS: BP 116/70
[2020-05-12] MEDS: METFORMIN HCL 500MG TABLET PO SCH ×2 (09:32→18:05)
[2020-05-12] MEDS: LISINOPRIL 10MG TABLET PO SCH ×2 (09:33→21:33)
[2020-05-12] MEDS: FUROSEMIDE 40MG/4ML VIAL IVP SCH ×2 (09:33→17:00)
[2020-05-12] MEDS: ASPIRIN 81MG TABLET PO SCH (09:33)
[2020-05-12] MEDS: THIAMINE HCL 100MG TABLET PO SCH (09:33)
[2020-05-12] MEDS: AMLODIPINE 5MG TABLET PO SCH ×2 (09:33→21:32)
[2020-05-12] MEDS: ENOXAPARIN 30MG/0.3ML SYR SUBCUT SCH ×2 (09:34→21:35)
[2020-05-12] MEDS: INSULIN GLARGINE UD 100 UNITS/ML SYR SUBCUT SCH ×2 (09:38→21:28)
[2020-05-12 12:00] VITALS: BP 128/66
[2020-05-12 16:00] VITALS: BP 118/70
[2020-05-12] MEDS: HYDROCODONE/ACETAMINOPHEN 5/325MG TABLET PO PRN (18:13)
[2020-05-12 20:00] VITALS: BP 117/59
[2020-05-12] MEDS: ATORVASTATIN CALCIUM 20MG TABLET PO SCH (21:32)
[2020-05-13] VITALS: BP 119/68
[2020-05-13 04:00] VITALS: BP 134/68
[2020-05-13] MEDS: BLOOD SUGAR DIAGNOSTIC STRIP TEST SCH (06:44)
[2020-05-13] MEDS: INSULIN LISPRO 100 UNITS/ML SUBCUT SCH (06:45)
[2020-05-13 08:12] VITALS: BP 124/64
[2020-05-13] MEDS: METFORMIN HCL 500MG TABLET PO SCH (08:36)
[2020-05-13] MEDS: ENOXAPARIN 30MG/0.3ML SYR SUBCUT SCH (08:37)
[2020-05-13] MEDS: LISINOPRIL 10MG TABLET PO SCH (08:37)
[2020-05-13] MEDS: AMLODIPINE 5MG TABLET PO SCH (08:37)
[2020-05-13] MEDS: FUROSEMIDE 40MG/4ML VIAL IVP SCH (08:37)
[2020-05-13] MEDS: THIAMINE HCL 100MG TABLET PO SCH (08:37)
[2020-05-13] MEDS: ASPIRIN 81MG TABLET PO SCH (08:37)
[2020-05-13] MEDS: INSULIN GLARGINE UD 100 UNITS/ML SYR SUBCUT SCH (09:40)
[2020-05-13 09:42] VITALS: BP 124/64
== END 2020-05-13 10:10 | disposition home or self-care (01) | DRG 813 ==
LOC: ER 16:41 → EDBEDREQ 17:20 → 3WST 20:42 → EDBEDREQ 20:43 → ENRESERV 22:34 → 6EST 05-08 15:18
PROVIDERS: ADMIT Internal Medicine; ATTEND Internal Medicine
DX: T81.31XA Disruption of external operation (surgical) wound, not elsewhere classified, initial encounter (principal); I50.23 Acute on chronic systolic (congestive) heart failure; E11.622 Type 2 diabetes mellitus with other skin ulcer; E11.51 Type 2 diabetes mellitus with diabetic peripheral angiopathy without gangrene; M94.0 Chondrocostal junction syndrome [Tietze]; I42.9 Cardiomyopathy, unspecified; E87.1 Hypo-osmolality and hyponatremia; L97.929 Non-pressure chronic ulcer of unspecified part of left lower leg with unspecified severity; I11.0 Hypertensive heart disease with heart failure; Z20.822 Contact with and (suspected) exposure to COVID-19; Y83.8 Other surgical procedures as the cause of abnormal reaction of the patient, or of later complication, without mention of misadventure at the time of the procedure; F10.10 Alcohol abuse, uncomplicated; Z91.19 Patient's noncompliance with other medical treatment and regimen; Z79.82 Long term (current) use of aspirin; Z79.84 Long term (current) use of oral hypoglycemic drugs; Z79.899 Other long term (current) drug therapy; Z71.41 Alcohol abuse counseling and surveillance of alcoholic; Y92.89 Other specified places as the place of occurrence of the external cause
CPT/HCPCS: 36415; 71045; 71275; 73590; 73630; 80053; 80305; 82962; 83880; 84484; 85025; 87426; 93005; 93306; 93923; 93970; 99285; J1650; J1815; J1940; Q9967

== ENCOUNTER 2020-06-13 16:43 | Emergency (ER) | payer MEDICAID ==
[~2020-06-13] VITALS: Ht 182.9 cm; Wt 91.0 kg
[~2020-06-13 16:43] MED LIST changes: +AMLO5TAB88 PO; +ATOR20TA PO; +FURO-151 MT; +INSU100I28 SQ; +LISI10TA26 PO
[2020-06-13] MEDS ORDERED: SODIUM CHLORIDE 0.9% 1,000 ML IV ONE (17:15)
[2020-06-13 17:22] LABS: HEMATOCRIT. 36.8 % (42.0-52.0); HEMOGLOBIN. 12.7 g/dL (14.0-18.0); MEAN CORPUSCULAR HEMOGLOBIN 33.6 pg (28.0-32.0); MEAN CORPUSCULAR VOLUME 96.9 fL (80.0-94.0); MEAN PLATELET VOLUME 8.4 fl (7.4-10.4); PLATELET 323 x1000/uL (130-400); RED BLOOD CELL COUNT 3.79 mill/uL (4.7-6.1); RED CELL DISTRIBUTION WIDTH 13.3 % (11.6-14.6)
[2020-06-13 17:30] LABS: CHLORIDE 100 mEq/L (98-107)
[2020-06-13 17:34] VITALS: BP 89/53
[2020-06-13 17:36] LABS: ETHANOL BLOOD 221 mg/dL
[2020-06-13 18:02] LABS: *AMPHETAMINES SCREEN URINE NEGATIVE (NEGATIVE); *BARBITURATES SCREEN URINE NEGATIVE (NEGATIVE); *BENZODIAZEPINES SCREEN URINE NEGATIVE (NEGATIVE); *COCAINE SCREEN URINE NEGATIVE (NEGATIVE)
[2020-06-13 18:03] LABS: CANNABINOID URINE SCREEN NEGATIVE (NEGATIVE); METHADONE URINE SCREEN NEGATIVE (NEGATIVE); OPIATES URINE SCREEN NEGATIVE (NEGATIVE); PHENCYCLIDINE URINE SCREEN NEGATIVE (NEGATIVE)
[2020-06-13 19:16] LABS: PLATELET ESTIMATE NORMAL
== END 2020-06-13 18:37 | disposition home or self-care (01) ==
LOC: ER 16:43
DX: E11.65 Type 2 diabetes mellitus with hyperglycemia (principal); I10 Essential (primary) hypertension; F10.129 Alcohol abuse with intoxication, unspecified; Y90.7 Blood alcohol level of 200-239 mg/100 ml; F17.200 Nicotine dependence, unspecified, uncomplicated; Z79.4 Long term (current) use of insulin; Z79.82 Long term (current) use of aspirin
CPT/HCPCS: 36415; 71045; 80053; 80305; 80320; 83690; 84484; 85025; 93005; 99285; J7030; G0480

== ENCOUNTER 2020-06-20 10:49 | Emergency (ER) | payer MEDICAID ==
[~2020-06-20] VITALS: Ht 182.9 cm; Wt 91.0 kg
[2020-06-20 10:51] VITALS: BP 138/78
== END 2020-06-20 11:32 | disposition left against medical advice (07) ==
LOC: ER 11:02
DX: R42 Dizziness and giddiness (principal); I10 Essential (primary) hypertension; E11.9 Type 2 diabetes mellitus without complications; J40 Bronchitis, not specified as acute or chronic; J43.9 Emphysema, unspecified; Z79.4 Long term (current) use of insulin; Z79.82 Long term (current) use of aspirin
CPT/HCPCS: 93005; 99283; Z7610

== ENCOUNTER 2020-12-17 11:54 | Emergency (ER) | payer MEDICAID ==
[~2020-12-17] VITALS: Ht 188 cm; Wt 103.0 kg
[2020-12-17 12:01] VITALS: BP 127/68
[2020-12-17 12:31] LABS: HEMATOCRIT. 40.1 % (42.0-52.0); HEMOGLOBIN. 13.6 g/dL (14.0-18.0); MEAN CORPUSCULAR HEMOGLOBIN 33.2 pg (28.0-32.0); MEAN CORPUSCULAR VOLUME 97.6 fL (80.0-94.0); MEAN PLATELET VOLUME 8.4 fl (7.4-10.4); PLATELET 348 x1000/uL (130-400); RED BLOOD CELL COUNT 4.11 mill/uL (4.7-6.1); RED CELL DISTRIBUTION WIDTH 12.5 % (11.6-14.6)
[2020-12-17 12:39] LABS: CHLORIDE 104 mEq/L (98-107)
[2020-12-17 12:42] LABS: ETHANOL BLOOD 219 mg/dL
[2020-12-17 13:22] LABS: PLATELET ESTIMATE NORMAL
== END 2020-12-17 13:35 | disposition left against medical advice (07) ==
LOC: ER 11:54
DX: R42 Dizziness and giddiness (principal); F10.129 Alcohol abuse with intoxication, unspecified; Y90.7 Blood alcohol level of 200-239 mg/100 ml; E11.65 Type 2 diabetes mellitus with hyperglycemia; I10 Essential (primary) hypertension; R40.2410 Glasgow coma scale score 13-15, unspecified time; J40 Bronchitis, not specified as acute or chronic; Z79.4 Long term (current) use of insulin; Z79.82 Long term (current) use of aspirin
CPT/HCPCS: 36415; 80053; 80320; 83880; 84484; 85025; 93005; 99284; G0480

== ENCOUNTER 2020-12-20 17:18 | Emergency (ER) | payer MEDICAID ==
[~2020-12-20] VITALS: Ht 177.8 cm; Wt 90.0 kg
[2020-12-21] MEDS ORDERED: METF-414 MT (04:26)
[2020-12-21] MEDS ORDERED: ASPI-1497 MT (04:26)
[2020-12-21] MEDS ORDERED: LISI10TA26 MT (04:26)
[2020-12-21 04:41] LABS: BASOPHILS % 0.4 % (0.0-2.0); EOSINOPHILS % 4.9 % (0.0-5.0); HEMATOCRIT. 39.9 % (42.0-52.0); HEMOGLOBIN. 13.4 g/dL (14.0-18.0); LYMPHOCYTES % 27.7 % (20.0-50.0); MEAN CORPUSCULAR HEMOGLOBIN 32.5 pg (28.0-32.0); MEAN CORPUSCULAR VOLUME 96.8 fL (80.0-94.0); MONOCYTES % 8.6 % (2.0-8.0); NEUTROPHILS % 58.4 % (40.0-76.0); PLATELET 320 x1000/uL (130-400); RED BLOOD CELL COUNT 4.12 mill/uL (4.7-6.1); RED CELL DISTRIBUTION WIDTH 12.7 % (11.6-14.6)
[2020-12-21 04:45] VITALS: BP 147/78
[2020-12-21 04:59] LABS: CHLORIDE 97 mEq/L (98-107)
[2020-12-21 05:06] LABS: ETHANOL BLOOD < 10 mg/dL
== END 2020-12-21 05:00 | disposition home or self-care (01) ==
LOC: ER 17:18
DX: E11.65 Type 2 diabetes mellitus with hyperglycemia (principal); I10 Essential (primary) hypertension; Z79.84 Long term (current) use of oral hypoglycemic drugs; Z79.82 Long term (current) use of aspirin
CPT/HCPCS: 36415; 71045; 80053; 80320; 82962; 83880; 84484; 85025; 93005; 99285; G0480

== ENCOUNTER 2021-01-30 10:42 | Emergency (ER) | payer MEDICAID ==
[~2021-01-30] VITALS: Ht 185.4 cm; Wt 104.0 kg
[~2021-01-30 10:42] MED LIST changes: +ASPI-1497 MT
[2021-01-30 10:43] VITALS: BP 174/92
[2021-01-30] MEDS ORDERED: ACETAMINOPHEN 325MG TABLET PO ONE (11:00)
[2021-01-30] MEDS ORDERED: ACET-2708 MT (11:02)
== END 2021-01-30 11:37 | disposition left against medical advice (07) ==
LOC: ER 10:54
DX: G89.29 Other chronic pain (principal); M25.572 Pain in left ankle and joints of left foot; E11.9 Type 2 diabetes mellitus without complications; I10 Essential (primary) hypertension; Z87.828 Personal history of other (healed) physical injury and trauma; Z79.84 Long term (current) use of oral hypoglycemic drugs; Z79.82 Long term (current) use of aspirin
CPT/HCPCS: 99283

== ENCOUNTER 2021-03-08 01:46 | Emergency (ER) | payer MEDICAID ==
[~2021-03-08] VITALS: Ht 182.9 cm; Wt 106.6 kg
[~2021-03-08 01:46] MED LIST changes: +ACET-2708 MT
[2021-03-08 01:53] VITALS: BP 103/62
== END 2021-03-08 04:47 | disposition home or self-care (01) ==
LOC: ER 01:46
DX: F10.229 Alcohol dependence with intoxication, unspecified (principal); I10 Essential (primary) hypertension; E11.9 Type 2 diabetes mellitus without complications; Y90.9 Presence of alcohol in blood, level not specified; Z79.4 Long term (current) use of insulin
CPT/HCPCS: 99283

== ENCOUNTER 2021-04-10 14:38 | Emergency (ER) | payer MEDICAID ==
[~2021-04-10] VITALS: Ht 177.8 cm; Wt 80.0 kg
[2021-04-10 14:39] VITALS: BP 133/72
== END 2021-04-10 16:09 | disposition left against medical advice (07) ==
LOC: ER 14:38
DX: Z53.21 Procedure and treatment not carried out due to patient leaving prior to being seen by health care provider (principal); J40 Bronchitis, not specified as acute or chronic; E11.9 Type 2 diabetes mellitus without complications; I10 Essential (primary) hypertension

== ENCOUNTER 2022-07-30 12:08 | Emergency (ER) | payer MEDICAID ==
[~2022-07-30] VITALS: Ht 182.9 cm; Wt 113.0 kg
[~2022-07-30 12:08] MED LIST changes: +ALBU6.7H3 INH; -ALBU6.7H9 INH
[2022-07-30 12:10] VITALS: BP 113/69; PULSE 87; RESP 18; O2SAT 100
[2022-07-30] MEDS ORDERED: ACETAMINOPHEN 325MG TABLET PO ONE (12:15)
[2022-07-30] MEDS ORDERED: TOPUD MT (12:15)
[2022-07-30 12:57] VITALS: TEMP 98.3
== END 2022-07-30 13:04 | disposition home or self-care (01) ==
LOC: ER 12:08
DX: M25.572 Pain in left ankle and joints of left foot (principal); I11.0 Hypertensive heart disease with heart failure; I50.9 Heart failure, unspecified; E11.9 Type 2 diabetes mellitus without complications
CPT/HCPCS: 99283